=== PATIENT | male | born 1960 | race Caucasian/White ===

== ENCOUNTER 2024-01-25 06:50 | Day surgery (SDC) | payer OTHER ==
[~2024-01-25] VITALS: Ht 190.5 cm; Wt 111.3 kg
[~2024-01-25 06:50] MED LIST: SODIUM CHLORIDE 0.9% 1,000 ML ONE
[2024-01-25] MEDS ORDERED: SODIUM CHLORIDE 0.9% 1,000 ML IV ONE (07:00)
[2024-01-25] MEDS ORDERED: FentaNYL CITRATE PF 100 MCG/2 ML VIAL ONE (07:46)
[2024-01-25] MEDS ORDERED: MIDAZOLAM HCL 2 MG/2 ML VIAL ONE (07:46)
[2024-01-25] MEDS ORDERED: ATROPINE SULFATE 0.1 MG/ML 10 ML SYRINGE IVP ONE (07:47)
[2024-01-25] MEDS ORDERED: EPINEPHrine 1:10,000 [1 MG/10 ML] SYRINGE ONE (07:47)
[2024-01-25] MEDS ORDERED: FLUMAZENIL 0.1 MG/ML 5 ML VIAL IVP ONE (07:47)
[2024-01-25] MEDS ORDERED: NALOXONE HCL 0.4 MG/ML VIAL ONE (07:47)
[2024-01-25] MEDS ORDERED: DiphenhydrAMINE HCL 50 MG/ML VIAL ONE (07:47)
[2024-01-25] MEDS ORDERED: MethylPREDNISolone SOD SUCC 125 MG/2 ML VIAL ONE (09:55)
[2024-01-25] MEDS: MethylPREDNISolone SOD SUCC 125 MG/2 ML VIAL IVP ONE (10:03)
[2024-01-25] MEDS ORDERED: ALBUTEROL SULFATE 2.5 MG/0.5 ML NEB SOLUTION NEB ONE (12:00)
[2024-01-25] MEDS ORDERED: BENZOCAINE 20% 50 MCG/SPRAY 57 GM TP ONE (12:00)
[2024-01-25] MEDS ORDERED: LIDOCAINE 2% 11 ML JELLY TP ONE (12:00)
[2024-01-25] MEDS ORDERED: LIDOCAINE 4% 50 ML SOLUTION TP ONE (12:00)
[2024-01-25 12:13] VITALS: PULSE 62; RESP 20; O2SAT 100
== END 2024-01-25 12:00 | disposition home or self-care (01) ==
LOC: SURGERY 06:50
PROVIDERS: ATTEND Internal Medicine Critical Care Medicine
DX: R05.3 Chronic cough (principal); R06.2 Wheezing; J38.4 Edema of larynx; B37.0 Candidal stomatitis; R04.2 Hemoptysis; J98.09 Other diseases of bronchus, not elsewhere classified; J84.10 Pulmonary fibrosis, unspecified; J98.8 Other specified respiratory disorders; M47.814 Spondylosis without myelopathy or radiculopathy, thoracic region; M54.30 Sciatica, unspecified side; Z86.16 Personal history of COVID-19; Z95.2 Presence of prosthetic heart valve; Z87.891 Personal history of nicotine dependence
CPT/HCPCS: 87206; 87101; 87220; 87070; 31623; 31624; 94640; 71045; 87015; J3010; J2250; J2919; Q9967; J7030; J0171; J0461; J1200; J2310; J3490; J7613; Z7610